=== PATIENT | male | born 1980 | race Caucasian/White ===

== ENCOUNTER 2021-04-29 15:29 | Inpatient (IN) ==
[2021-04-29 16:30] LABS: Hematocrit 49 % (42-52); Hemoglobin 16.6 g/dL (14.0-18.0); Mean Corpuscular HGB Conc 34 g/dL (31-36); Mean Corpuscular Hemoglobin 32 pg (27-31); Mean Corpuscular Volume 92 fL (80-94); Mean Platelet Volume 11.5 fL (7.4-10.4); Platelet Count 175 10^3/uL (150-450); Red Blood Count 5.28 10^6 /uL (4.18-5.48); Red Cell Distribution Width 13 % (10-15); White Blood Count 9.6 10^3/uL (3.5-10.8)
[2021-04-29 16:55] LABS: Albumin 4.3 g/dL (3.2-5.2); Globulin 2.2 g/dL (2-4); Total Bilirubin 0.4 mg/dL (0.2-1.0); Total Protein 6.5 g/dL (6.4-8.9); eGFR CKD-EPI 100.6 (>60)
[2021-04-29 16:55] LABS: INR 1.07 (0.86-1.15)
[2021-04-29 16:59] LABS: Potassium 4.2 mmol/L (3.5-5.0)
[2021-04-29 17:12] LABS: Large Platelets Present
[2021-04-29 17:13] LABS: ABS Basophils 0.1 10^3/ul (0-0.2); ABS Eosinophils 0.1 10^3/ul (0-0.6); ABS Lymphocytes 1.8 10^3/ul (1.0-4.8); ABS Monocytes 0.6 10^3/ul (0-0.8); ABS Neutrophils 7.1 10^3/ul (1.5-7.7); Eosinophil % 0.8 %; Lymphocyte % 19.2 %; Nucleated Red Blood Cells % 0.2
[2021-04-29 17:31] LABS: High Sensitivity Troponin 1 Hr 735 pg/mL (<20)
[2021-04-29] MEDS ORDERED: Heparin - STEMI 5,000 UNITS/ML 1 ml VIAL IV ONE ×2 (18:58→18:59)
[2021-04-29] MEDS ORDERED: Nitro 2% OINT (Nitroglycerin) 1 INCH/PAK ONE (19:03)
[2021-04-29] MEDS ORDERED: Nitro 2% OINT (Nitroglycerin) 1 INCH/PAK TOPICAL ONE (19:08)
[2021-04-29] MEDS ORDERED: Heparin 2 UNITS/ML 1000 mls 2,000 ML IV ONE (19:14)
[2021-04-29] MEDS ORDERED: VERAPAMIL 2.5 MG/ML 2 ML VIAL ** 5 mg/2 ml ONE (19:14)
[2021-04-29] MEDS ORDERED: Heparin 1,000 UNIT/ML 10 ml (10,000 UNITS) CATHLAB/DIALYSIS ONE (19:14)
[2021-04-29] MEDS ORDERED: Lidocaine 1% MPF 5 ML VIAL ONE ×2 (19:16→19:35)
[2021-04-29] MEDS ORDERED: Iohexol 350 (CONTRAST) 200 ML MDV IV ONE (19:16)
[2021-04-29] MEDS ORDERED: nitroGLYCERIN DRIP (PHA MIX) 25,000 MCG/250 ML BAG ONE ×2 (19:24→19:35)
[2021-04-29] MEDS ORDERED: Midazolam 5 mg/5 ml VIAL 1 mg/ml 5 ml VIAL (5 mg) ONE (19:25)
[2021-04-29] MEDS ORDERED: fentaNYL 100 mcg/2 ml 50 MCG/ML VIAL ONE (19:25)
[2021-04-29] MEDS ORDERED: Bivalirudin 250 MG VIAL ONE (19:54)
[2021-04-29] MEDS ORDERED: Metoprolol Tartrate 5 mg VIAL 5 ml VIAL (1 mg/ml) ONE (20:23)
[2021-04-29] MEDS ORDERED: Furosemide 20 mg/2 ml IV VIAL IV ONE (21:13)
[2021-04-29] MEDS ORDERED: NS 0.9% 1000 ml BAG 1,000 ML IV SCH (21:15)
[2021-04-29 22:10] LABS: Activated Partial Thrombo Time >240.0 seconds (26.0-38.0)
[2021-04-30 04:58] LABS: ABS Basophils 0.1 10^3/ul (0-0.2); ABS Eosinophils 0.2 10^3/ul (0-0.6); ABS Lymphocytes 2.9 10^3/ul (1.0-4.8); ABS Monocytes 0.9 10^3/ul (0-0.8); ABS Neutrophils 8.1 10^3/ul (1.5-7.7); Eosinophil % 1.3 %; Hematocrit 46 % (42-52); Hemoglobin 15.5 g/dL (14.0-18.0); Lymphocyte % 23.6 %; Mean Corpuscular HGB Conc 34 g/dL (31-36); Mean Corpuscular Hemoglobin 31 pg (27-31); Mean Corpuscular Volume 91 fL (80-94); Mean Platelet Volume 10.8 fL (7.4-10.4); Platelet Count 182 10^3/uL (150-450); Red Blood Count 5.01 10^6 /uL (4.18-5.48); Red Cell Distribution Width 13 % (10-15); White Blood Count 12.2 10^3/uL (3.5-10.8)
[2021-04-30 05:35] LABS: Albumin/Globulin Ratio 1.6 (1-3); Globulin 2.5 g/dL (2-4); HDL Cholesterol 21.3 mg/dL; Potassium 3.7 mmol/L (3.5-5.0); Total Bilirubin 0.6 mg/dL (0.2-1.0); Total Protein 6.5 g/dL (6.4-8.9); eGFR CKD-EPI 99.3 (>60)
[2021-04-30] MEDS ORDERED: Potassium Chlor 20 meq TAB.ER PO ONE (09:17)
[2021-04-30] MEDS ORDERED: Nicotine PATCH 7 MG/24 HR PATCH TRANSDERM SCH (11:00)
[2021-04-30 13:29] VITALS: BP 159/108
== END 2021-04-30 15:27 | disposition left against medical advice (07) | DRG 174 ==
LOC: ED 15:29 → ICU 21:15